=== PATIENT | female | born 1995 | race Two or more races ===

== ENCOUNTER 2017-04-26 17:13 | Emergency (ER) | payer OTHER ==
[~2017-04-26] VITALS: Ht 160 cm; Wt 68.0 kg
== END 2017-04-26 21:24 | disposition home or self-care (01) ==
LOC: ER 17:13
DX: N39.0 Urinary tract infection, site not specified (principal); R10.84 Generalized abdominal pain

== ENCOUNTER 2018-11-03 09:25 | Outpatient (CLI) | payer OTHER | END 2018-11-03 09:33 | disposition home or self-care (01) | LOC: LAB 09:25 | DX: E03.8 Other specified hypothyroidism (principal); D50.8 Other iron deficiency anemias; E11.9 Type 2 diabetes mellitus without complications; E78.00 Pure hypercholesterolemia, unspecified; N39.0 Urinary tract infection, site not specified; Z11.3 Encounter for screening for infections with a predominantly sexual mode of transmission; Z11.4 Encounter for screening for human immunodeficiency virus [HIV]; A63.0 Anogenital (venereal) warts ==